=== PATIENT | female | born 1990 | race Caucasian/White ===

== ENCOUNTER 2023-11-30 18:20 | Inpatient (IN) | payer OTHER ==
[~2023-11-30 18:20] MED LIST: chlordiazePOXIDE HCL 25 MG CAPSULE PO SCH
[2023-11-30 19:00] VITALS: BMI 18.8
[2023-11-30] MEDS ORDERED: BENZOCAINE/MENTHOL (CHLORASEPTIC ) LOZENGE MM PRN (20:02)
[2023-11-30] MEDS ORDERED: POLYETHYLENE GLYCOL (HEALTHYLAX) 3350 17 GM PACKET PO PRN (20:02)
[2023-11-30] MEDS ORDERED: MAGNESIUM HYDROX 2400MG/30ML ORAL SUSPENSION 30 ML CUP PO PRN (20:02)
[2023-11-30] MEDS ORDERED: DICYCLOMINE HCL 10 MG CAPSULE PO PRN (20:02)
[2023-11-30] MEDS ORDERED: IBUPROFEN 400 MG TABLET (FP) PO PRN (20:02)
[2023-11-30] MEDS ORDERED: guaiFENesin 600 MG TABLET.ER (FP) PO PRN (20:02)
[2023-11-30] MEDS ORDERED: ONDANSETRON *ODT* 4 MG TABLET SL PRN (20:02)
[2023-11-30] MEDS ORDERED: NALOXONE (NARCAN) HCL 4 MG/0.1 ML SPRAY NS PRN (20:02)
[2023-11-30] MEDS ORDERED: BISMUTH SUBSALICYLATE 524 MG/30 ML PO PRN (20:02)
[2023-11-30] MEDS ORDERED: LOPERAMIDE HCL 2 MG CAPSULE PO PRN (20:02)
[2023-11-30] MEDS ORDERED: BENZONATATE 200 MG CAPSULE PO PRN (20:02)
[2023-11-30] MEDS: MELATONIN 5 MG TABLETS PO SCH (22:25)
[2023-11-30] MEDS: IBUPROFEN 600 MG TABLET (FP) PO PRN (22:25)
[2023-11-30] MEDS: hydrOXYzine PAMOATE 25 MG CAPSULE (FP) PO PRN (22:25)
[2023-11-30] MEDS: THIAMINE 100 MG TABLET PO SCH (22:26)
[2023-11-30] MEDS ORDERED: chlordiazePOXIDE HCL 25 MG CAPSULE PO PRN (23:58)
[2023-12-01] MEDS: chlordiazePOXIDE HCL 25 MG CAPSULE PO SCH (05:45)
[2023-12-01] MEDS: methaDONE HCL 40 MG DISPERSABLE TABLET PO ONE (09:12)
[2023-12-01] MEDS: NICOTINE 21 MG/24 HOURS TOPICAL PATCH TD SCH (09:13)
[2023-12-01] MEDS: PRENATAL VITAMINS W/ FOLIC ACID TABLET (FP) PO SCH (09:13)
[2023-12-01] MEDS: methaDONE HCL 10 MG TABLET PO ONE (10:37)
[2023-12-01] MEDS: TOPIRAMATE 25 MG TABLET PO SCH (15:38)
[2023-12-01] MEDS: diazePAM 5 MG TABLET PO SCH (17:15)
[2023-12-01] MEDS: ACETAMINOPHEN 325 MG TABLET (FP) PO PRN (17:16)
[2023-12-01] MEDS: diazePAM 5 MG TABLET PO PRN (19:30)
[2023-12-02] MEDS ORDERED: chlordiazePOXIDE HCL 10 MG CAPSULE PO PRN
[2023-12-02] MEDS ORDERED: chlordiazePOXIDE HCL 10 MG CAPSULE PO SCH (05:00)
[2023-12-02] MEDS: methaDONE HCL 40 MG DISPERSABLE TABLET PO SCH (05:42)
[2023-12-02] MEDS: diazePAM 5 MG TABLET PO SCH (05:42)
[2023-12-02] MEDS: methaDONE HCL 10 MG TABLET PO ONE (09:48)
[2023-12-02] MEDS: NICOTINE POLACRILEX 4 MG GUM BUC PRN (17:24)
[2023-12-02 17:29] LABS: HEMATOCRIT 44.2 % (32.4-45.2); HEMOGLOBIN 14.3 GM/dL (10.7-15.3); MCH 26.6 pg (25.7-33.7); MCHC 32.3 g/dl (32.0-36.0); MEAN CELL VOLUME 82.5 fl (80-96); MEAN PLT VOLUME 7.7 fl (7.5-11.1); PLATELET COUNT 321 10^3/uL (134-434); RBC 5.36 M/mm3 (3.60-5.2); WHITE BLOOD COUNT 10.3 K/mm3 (4.0-10.0)
[2023-12-02 18:56] LABS: POTASSIUM 4.7 mmol/L (3.5-5.1)
[2023-12-02 18:58] LABS: ALBUMIN 3.5 g/dl (3.4-5.0); BLOOD UREA NITROGEN 14.6 mg/dL (7-18)
[2023-12-02 19:01] LABS: CREATININE 0.8 mg/dL (0.55-1.3)
[2023-12-02 19:03] LABS: BILIRUBIN,TOTAL 0.4 mg/dL (0.2-1); TOT PROT 7.1 g/dl (6.4-8.2)
[2023-12-02] MEDS: SUVOREXANT 10 MG TABLET PO PRN (21:58)
[2023-12-03] MEDS ORDERED: chlordiazePOXIDE HCL 10 MG CAPSULE PO SCH (05:00)
[2023-12-03] MEDS: diazePAM 5 MG TABLET PO SCH (05:35)
[2023-12-03] MEDS: methaDONE HCL 10 MG TABLET PO ONE (09:52)
[2023-12-03] MEDS: MAG HYDROX/AL HYDROX/SIMETH 30 ML UNIT-DOSE CUP PO PRN (20:08)
[2023-12-03] MEDS: SUVOREXANT 15 MG TABLET PO PRN (22:11)
[2023-12-04] MEDS ORDERED: chlordiazePOXIDE HCL 10 MG CAPSULE PO ONE (05:00)
[2023-12-04] MEDS: diazePAM 5 MG TABLET PO ONE (05:36)
[2023-12-04 09:16] VITALS: BP 116/67; PULSE 78; RESP 18; TEMP 98.3
[2023-12-04] MEDS: methaDONE HCL 10 MG TABLET PO ONE (09:29)
[2023-12-04] MEDS: NALOXONE (NYS OPIOID OVERDOSE PROGRAM) 4 MG/0.1 ML SPRAY NS PRN (10:53)
== END 2023-12-04 10:55 | disposition home or self-care (01) | DRG 773 ==
LOC: YASAS 18:20 → Y6N 21:05
PROVIDERS: ADMIT Allergy & Immunology; ATTEND Surgery
PROC: HZ2ZZZZ Detoxification Services for Substance Abuse Treatment (ICD-10-PCS; principal; 2023-11-30)
DX: F10.230 Alcohol dependence with withdrawal, uncomplicated (principal); F11.20 Opioid dependence, uncomplicated; F14.20 Cocaine dependence, uncomplicated; F17.210 Nicotine dependence, cigarettes, uncomplicated; F19.282 Other psychoactive substance dependence with psychoactive substance-induced sleep disorder; F19.280 Other psychoactive substance dependence with psychoactive substance-induced anxiety disorder; F19.24 Other psychoactive substance dependence with psychoactive substance-induced mood disorder; G47.00 Insomnia, unspecified; M54.50 Low back pain, unspecified; G89.29 Other chronic pain; Z91.410 Personal history of adult physical and sexual abuse; Z63.0 Problems in relationship with spouse or partner
CPT/HCPCS: 36415; 80053; 80305; 80307; 81025; 85027; 86780; 93005; 93010